=== PATIENT | male | born 1970 | race Two or more races ===

== ENCOUNTER 2022-04-27 08:54 | Emergency (ER) | payer BC, SELFPAY ==
[2022-04-27 08:58] VITALS: BP 128/81; PULSE 98; RESP 18; TEMP 36.1; O2SAT 97; BMI 27.0
--- NOTE | 2022-04-27 09:41 | ED_ITS ---
HPI - General Adult General Chief complaint: General Medical Stated complaint: stiff neck, neck pain going to R shoulder Time Seen by Provider: 04/27/22 09:40 Source: patient Mode of arrival: ambulatory Limitations: no limitations History of Present Illness HPI narrative: Patient is a 51 year old assigned male at with no reported medical history presenting to the emergency department today with right sided neck pain. Patient states that he is having right sided neck pain that is radiating down his right arm. 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 Patient states that unrelated to that he is also having feelings of increased difficulty swallowing that he would like to have evaluated. Patient denies any dizziness, lightheadedness, abdominal pain, nausea, vomiting, fever, chills, blurry vision, double vision, loss of vision, chest pain, difficulty breathing, shortness of breath, back pain, night sweats, pain with urination, increased urinary frequency, increased urinary urgency, blood in his urine or stool, syncope or a near syncopal episode, recent trauma or falls, bowel incontinence, bladder incontinence, bowel retention, bladder r etention, or any other complaints at this time. Onset (ago): month(s) (3) Location: neck and right Radiation: extremity Severity: mild Severity scale (1-10): 3 Relieving factors: none Exacerbating factors: none Associated symptoms: denies other symptoms Treatments prior to arrival: none Related Data Previous Rx's Medication Instructions Recorded cyclobenzaprine 5 mg tablet 5 mg PO TID PRN neck pain 7 days 04/27/22 #21 tabs naproxen 500 mg tablet 500 mg PO BID 7 days #14 tabs 04/27/22 prednisone 20 mg tablet 20 mg PO DAILY 7 days #7 tabs 04/27/22 Allergies Allergy/AdvReac Type Severity Reaction Status Date / Time No Known Allergies Allergy Verified 04/27/22 09:02 Review of Systems Constitutional: Constitutional: Reports no additional constitutional complaints, Denies chills, Denies fever(s) and Denies night sweats Eyes: Eyes: Reports no additional eye complaints, Denies blurry vision, Denies change in vision, Denies diplopia, Denies eye discharge, Denies loss of vision and Denies eye pain ENT: Denies dizziness and Reports neck pain Cardiovascular: Cardiovascular: Reports no additional cardiovascular complaints, Denies chest pain, Denies lightheadedness, Denies Loss of Consciousness and Denies dyspnea Respiratory: Respiratory: Reports no additional respiratory complaints and Denies dyspnea Gastrointestinal: Gastrointestinal: Reports no additional gastrointestinal complaints, Denies abdominal pain, Denies melena, Denies hematochezia, Denies change in bowel habits and Denies change in stool character Genitourinary: Genitourinary: Reports no additional male genitourinary complaints, Denies hematuria, Denies oliguria, Denies difficulty urinating, Denies dysuria, Denies urinary frequency, Denies urinary hesitancy, Denies urinary incontinence and Denies urinary urgency Musculoskeletal: Musculoskeletal: Reports no additional musculoskeletal complaints, Reports neck pain, Denies numbness and Denies tingling Neurologic: Denies dizziness, Denies loss of vision, Denies numbness and Denies tingling Psychiatric: Psychiatric: Reports no additional psychiatric complaints Endocrine: Endocrine: Reports no additional endocrine complaints Hematologic/Lymphatic: Hematologic/Lymphatic: Reports no additional hemat ologic/lymphatic complaints Allergic/Immunologic: Allergic/Immunologic: Reports no additional allergic/immunologic complaints [facility] Past Medical History Attestation statement: The following information was validated with the patient. Source: old records reviewed and nursing notes reviewed Social History Social History Advance Directives: No Advance Directives Information Provided: Yes Physical Exam ED Vital Signs: Vital Signs - 24 hr 04/27/22 08:58 Temperature 96.9 F Pulse Rate 98 Respiratory Rate 18 Blood Pressure 128/81 Pulse Oximetry 97 Oxygen Delivery Method Room Air BMI result Body Mass Index 27.0 Const General: cooperative, no acute distress, alert and awake Nutritional Appearance: well nourished Orientation/consciousness: patient oriented x3 Limitations: no limitations HENMT Head: Yes normal to inspection and Yes atraumatic Ears: hearing grossly normal bilaterally and external ears normal General nose exam: Normal external nose present, no nasal discharge noted and no epistaxis Face and sinus: Yes normal facial exam, No abrasion and No laceration Mouth: Normal oral and palatal mucosa present, no drooling and no muffled voice Eyes General: appearance normal, both eyes and all related structures Periorbital: periorbital findings normal Eyelids: Yes eyelids normal Conjunctivae: conjunctivae normal Pupils: Equal, round and reactive pupils present EOM: EOMs intact bilaterally Neck Neck: Yes normal visual inspection, Yes full ROM and Yes no lymphadenopathy Chest Chest palpation & inspection: normal inspection of the chest Resp Effort & Inspection: normal respiratory effort and able to speak in complete sentences Auscultation: clear to auscultation bilaterally Cardio Rate: regular rate Rhythm: regular rhythm GI Inspection: Yes normal to inspection Palpation (GI): Soft to palpation, not firm, nontender and no guarding Neuro General: patient oriented x3 and moves all extremities Cranial nerves: Yes Equal, round and reactive pupils present Cognition (Neuro): normal cognition Motor exam (neuro): 5/5 motor strength present throughout Sensory Exam: Normal double simultaneous stimulation for sensation Coordination: [id number] test normal Extrem General: Yes normal to inspection, Yes full ROM and Yes capillary refill normal Psych Appearance: grossly normal Mental Status: mental status grossly normal Affect: normal affect Attitude: cooperative Thought process: Normal thought process present Thought content: Normal thought content present Insight: Good insight present (Psych) Medications Administered Discontinued Medications Generic Name Dose Route Start Last Admin Trade Name Christine PRN Reason Stop Dose Admin Ketorolac Tromethamine 15 mg 04/27/22 10:07 04/27/22 10:16 Ketorolac Tromethamine 15 Mg/Ml Vial IM 04/27/22 10:08 15 mg ONCE ONE Administration Medical Decision Making Medical Decision Making [facility] Narrative: Patient is a 51 year old assigned male at with no reported medical history presenting to the emergency department today with right neck pain. Patient's physical exam was unremarkable. Patient's COVID-19 test was negative. Patient's clinical presentation is most consistent with cervical radiculopathy. I explained my physical exam findings to the patient. I answered all questions asked by the patient. Patient received IM Toradol which he stated helped his pain significantly. I stressed the importance of the patient taking his medication as prescribed. I stressed the importance of the patient following up with his primary care provider, a GI specialist, and a account resolution specialist. I stressed the importance of the patient returning to the emergency department immediately if his symptoms were to worsen or if he were to develop any dizziness, shortness of breath, difficulty breathing, chest pain, blurry vision, loss of vision, nausea, vomiting, abdominal pain, fever, chills, back pain, or any other complaints. Patient verbalized agreement and understanding with this treatment plan and discharge. Differential Diagnosis Differential Diagnoses: The differential diagnosis associated with the presentation includes cervical radiculopathy Lab Data MDM Lab Attestation statement: I reviewed the patient's lab results. Labs: Lab Results 04/27/22 Range/Units 09:04 COVID-19 ([facility]) Negative (Negative) COVID-19 Clin Com See Note Discharge Plan Discharge Clinical Impression: Cervical radiculopathy Patient Disposition: Home, Self-Care Instructions: Cervical Radiculopathy (ED) Additional Instructions: Follow up with a primary care provider, a GI specialist, and a account resolution specialist. Return to the emergency department immediately if your symptoms worsen or if you develop any dizziness, shortness of breath, difficulty breathing, chest pain, blurry vision, loss of vision, nausea, vomiting, abdominal pain, fever, chills, back pain, or any other complaints. Prescriptions: New cyclobenzaprine 5 mg tablet 5 mg PO TID PRN (Reason: neck pain) 7 Days Qty: 21 0RF prednisone 20 mg tablet 20 mg PO DAILY 7 Days Qty: 7 0RF naproxen 500 mg tablet 500 mg PO BID 7 Days Qty: 14 0RF Ref[place]: [facility] [facility] [Provider Group] (During your visit today, you mentioned intermittent issues with swallowing and food stacking - call to establish and follow up with a GI specialist about these concerns. ) [facility] [place] [facility] [Provider Group] (Call to establish and follow up with a primary care provider.) [facility] [place] Primary Care, Manisha [Provider Group] (Call to establish and follow up with a primary care provider.) [facility] [place] Primary Care,Tasneem [Provider Group] (Call to establish and follow up with a primary care provider.) [facility] [Provider Group] (You were seen for Cervical Radiculopathy - call to establish and follow up with a account resolution specialist about this. ) Stand Alone Forms: Work/School Release Interventions: ED Discharge Assessment Last Done: 04/27/22 10:14 Discharge Date/Time: 04/27/22 10:20 Print Language: [place]
[2022-04-27 09:54] LABS: IDNOW Serial# 16C4AD1C
[2022-04-27 09:55] LABS: COVID-19 Test Negative (Negative)
[2022-04-27] MEDS: Ketorolac Tromethamine 15 MG/ML VIAL IM (10:16)
== END 2022-04-27 10:20 | disposition home or self-care (01) ==
PROVIDERS: Emergency Provider Emergency Medicine Emergency Medical Services
DX: M54.12 Radiculopathy, cervical region (principal); M54.2 Cervicalgia; M25.511 Pain in right shoulder; Z20.822 Contact with and (suspected) exposure to COVID-19; Z20.828 Contact with and (suspected) exposure to other viral communicable diseases; Z79.899 Other long term (current) drug therapy
CPT/HCPCS: 87635; 96372; 99283; 99284; J1885